=== PATIENT | female | born 1990 | race Caucasian/White ===

== ENCOUNTER 2022-10-18 23:40 | Emergency (ER) | payer SELFPAY ==
[~2022-10-18] VITALS: Ht 160 cm; Wt 62.1 kg
--- NOTE | 2022-10-19 02:54 | NUR ---
Patient ambulated to room #4-b with family member, was seen by ER MD, informed of plan of care at that time. ACI given stable for discharge home with family, states understanding.
[2022-10-19 02:57] VITALS: BP 137/85
== END 2022-10-19 02:57 | disposition home or self-care (01) ==
LOC: ER 23:40
DX: S09.90XA Unspecified injury of head, initial encounter (principal); X58.XXXA Exposure to other specified factors, initial encounter; Y92.89 Other specified places as the place of occurrence of the external cause
CPT/HCPCS: A4663